=== PATIENT | male | born 1990 | race African-American/Black ===

== ENCOUNTER 2018-09-08 17:32 | Emergency (ER) | payer MEDICAID ==
[~2018-09-08] VITALS: Ht 188 cm; Wt 75.0 kg
--- NOTE | 2018-09-08 18:14 | NUR ---
PT WC'D TO ROOM 6 W/ C/O NOSE BLEED AFTER PT STATES COLLISION W/ BASKETBALL. PT NOTED TO HAVE DEVIATED NOSE. REEMA QUINN AWARE. PT RESTING ON [facility]. INDER.
[2018-09-08] MEDS ORDERED: BACITRACIN ZINC OINT 500U/GM, 0.9 GM ONE (18:32)
--- NOTE | 2018-09-08 20:56 | NUR ---
PT. RESTING ON TED WITH INDER. PT. DENIES NEEDS. SURGEON TO SEE PT. IN ED.
--- NOTE | 2018-09-08 21:34 | NUR ---
VS UPDATED AND STABLE. PT. CONTINUES RESTING ON GURNEY WITH NADN. AWAITING SURGEON EVAL. PT. REQUESTING FOOD; UPDATED PT. ON NEED TO REMAIN NPO UNTIL AFTER SURGEON EVAL. PT. VERBALIZED UNDERSTANDING OF THIS. DENIES OTHER NEEDS. CALL LIGHT IN REACH. ALL SAFETY MEASURES OBSERVED.
--- NOTE | 2018-09-08 21:44 | NUR ---
PER THOMAS ARRIAGA OK FOR PT. TO HAVE A SNACK DR. GOLDSTEIN STATED DURING BART'S PHONE CALL WITH HIM THAT HE WOULD NOT BE DOING SURGERY TONIGHT SO OK FOR PT. TO EAT. SNACKS PROVIDED TO PT. DR. GOLDSTEIN ARRIVED TO ED TO EVAL PT. AT THIS TIME.
[2018-09-08 22:45] VITALS: BP 121/66
== END 2018-09-08 22:49 | disposition home or self-care (01) ==
LOC: ED 22:10
DX: S02.2XXB Fracture of nasal bones, initial encounter for open fracture (principal); S02.82XA Fracture of other specified skull and facial bones, left side, initial encounter for closed fracture; S02.40DA Maxillary fracture, left side, initial encounter for closed fracture; X58.XXXA Exposure to other specified factors, initial encounter; Y93.89 Activity, other specified; Y92.410 Unspecified street and highway as the place of occurrence of the external cause; Y99.8 Other external cause status
CPT/HCPCS: 70450; 70486; 72125; 99284